=== PATIENT | female | born 1995 | race Caucasian/White ===

== ENCOUNTER 2019-11-12 00:33 | Inpatient (IN) | payer BC ==
[2019-11-12] MEDS ORDERED: OXYTOCIN/LR 20 UNIT/1,000 ML BAG IV SCH ×2 (04:16→17:00)
--- OUTSIDE RECORDS SUMMARY | 2019-11-12 04:24 | XMS REPORT | Continuity of Care Document ---
:1995 Author Organization [facility] t Address [address] [place] [address] [address]. [address] [place] [address] Care Team Providers Name Role Phone DR DICK Attending Clinician Unavailable DR DICK Admitting Clinician Unavailable Problems This patient has no known problems. Allergies, Adverse Reactions, Alerts This patient has no known allergies or adverse reactions. Medications This patient has no known medications. Procedures This patient has no known procedures. Encounters Start End Encounter Admission Attending Care Care Encounter Source Date/Time Date/Time Type Type Clinicians Facility Department ID 2018-04-05 2018-04-05 Outpatient [facility] 1 [id number] [facility] 12:23:00 15:16:00 [facility] Results Test Description Test Time Test Comments Results Result Comments Source URINE MONOCLONALRO 2018-04-05 12:30:00 Test Item Value Reference Range Interpretation Comme nts PREG UR (test code = PGU) NEGATIVE NEGATIVE
[2019-11-12] MEDS ORDERED: METHYLERGONOVINE 0.2MG/ML AMP IM PRN (05:11)
[2019-11-12] MEDS ORDERED: PROMETHAZINE INJ 25 MG/ML AMP IM PRN (05:11)
[2019-11-12] MEDS ORDERED: Ringers Lactate 1,000 ML IV PRN (05:11)
[2019-11-12] MEDS ORDERED: CARBOPROST TROME 250 MCG/ML IM PRN (05:11)
[2019-11-12] MEDS ORDERED: BUTORPHANOL 1 MG/ML INJ IV PRN (05:11)
[2019-11-12 05:41] LABS: Urine Appearance CLOUDY; Urine Bilirubin NEGATIVE (NEG); Urine Blood 1+ (NEG); Urine Color YELLOW; Urine Glucose NEGATIVE (NEG); Urine Protein NEGATIVE (NEG); Urine Urobilinogen 0.2 mg/dL (0.2-1.0); Urine pH 6.5 (5.0-7.0)
[2019-11-12 05:44] LABS: Urine Microscopic Reflex ORDER UMIC
[2019-11-12 05:50] LABS: Absolute Lymphocytes (CBC) 1.3 K/uL (0.7-4.9); Basophils % 0.2 % (0-1.3); Hematocrit 29.7 % (36.0-45.0); Lymphocytes % 13.3 % (15.3-44.8); MPV 8.6 fL (7.6-11.3); RBC Red Blood Cell Count 3.25 M/uL (3.86-4.86)
[2019-11-12 05:59] VITALS: BMI 23.8
[2019-11-12 05:59] LABS: Urine Bacteria 20-50 /HPF (<20); Urine RBC <5 /HPF (NONE SEEN)
[2019-11-12 06:00] LABS: Urine Culture Reflex Order REFLEXED
[2019-11-12] MEDS ORDERED: Ringers Lactate 1,000 ML IV SCH (06:00)
--- NOTE | 2019-11-12 07:57 | PREOPHP ---
Date of Admission: 11/12/2019 Sury Mcmahon 24-year-old primigravida, 39 weeks 3 days, Rh positive, immune to Rubella, negative be ta strep screen. FHTs normal, reactive. Vital signs stable. The patient is 1.5, almost 2 cm, 50% e ffaced, vertex, -1 station, rupture of membranes, clear fluid. Full labor talk given. Anticipate de livery sometime later today. HARRIS/DANG Voice ID: [id number]
[2019-11-12] MEDS ORDERED: FENTANYL CITR 100 MCG/2 ML IV ONE (08:23)
[2019-11-12] MEDS ORDERED: ROPIVACAINE HCL 100 ML IV PRN (08:23)
[2019-11-12] MEDS ORDERED: ROPIVACAINE HCL 0.2% 20ML AMP IV ONE (08:23)
[2019-11-12] MEDS ORDERED: LIDOCAINE 1% MPF 30 ML VIAL ONE (12:44)
--- NOTE | 2019-11-12 15:36 | PN ---
The patient is dylan every 1.5 to 2 minutes, very firm. Baby looks good. She has had 2 doses of Stadol but even with that baby has reasonable hugz-nc-cozx variability. She is now 4.5, almost 4 cm. Cervix is coming more anterior. She is about 60% to 65% effaced at this point in about a -1 sta tion. Requested an epidural. I think that is reasonable. We will hydrate her and notify Anesthesia and sometime during the next hour she will get her epidural. She is having back labor and has been doing pelvic rocks. Position of the baby is difficult to say at this point. We will check again lat er. HARRIS/DANG Voice ID: [id number] Report ID: [id number]
--- NOTE | 2019-11-12 16:06 | PN ---
The patient now has her epidural. She is quite happy and very comfortable. Can still move her legs very well. Baby looks good on the monitor. She is about 5 cm, 65% effaced. We need to finish effac ement and then I think, she will start dilating. She will continue pelvic rocks as she was having ba ck labor prior to the epidural. Once she gets to be about 6-7, I think she will make more rapid prog ress if she rotates the baby into an anterior position. HARRIS/DANG Voice ID: [id number] Report ID: [id number]
[2019-11-12] MEDS ORDERED: DOCUSATE NA/SENNA CONC 1 TAB PO PRN (16:52)
[2019-11-12] MEDS ORDERED: IBUPROFEN 200 MG TAB PO PRN (16:52)
[2019-11-12] MEDS ORDERED: ACETAMINOPHEN 500 MG TAB PO PRN (16:52)
[2019-11-12] MEDS ORDERED: Oxycodone HCl/Acetaminophen 1 TAB TAB PO PRN ×2 (16:52)
[2019-11-12] MEDS ORDERED: BISACODYL 10 MG RECTAL SUPP RC PRN (16:52)
[2019-11-12] MEDS ORDERED: DIPHENHYDRAMINE 25 MG TAB/CAP PO PRN (16:52)
[2019-11-12] MEDS ORDERED: miSOPROStoL 100 MCG TAB ONE (19:51)
[2019-11-12] MEDS: miSOPROStoL 100 MCG TAB PO SCH ×2 (20:10)
--- NOTE | 2019-11-13 01:10 | OP ---
Surgeon: Wilman Gordon MD A 24-year-old primigravida, at 39 weeks 3 days, approximately 2.5 to 3 cm on admission. Rupture of m embranes, clear fluid. Stadol 1 mg IV, 25 mg Phenergan IM. Second dose of Stadol only 1 mg. At maxine roximately 4 cm, the patient requested and received epidural anesthesia, which gave excellent effect during remainder of labor and delivery. Second stage between 30 and 45 minutes. Spontaneous vaginal delivery of an estimated 7-pound plus female, Apgars 9 and 9. Second-degree laceration repaired wit h 2-0 chromic and first degree extension with 3-0 chromic. Estimated blood loss 300 to 350 mL with S chultze delivery of the placenta, which was inspected and noted to be intact and normal. The patient tolerated all procedures well. She is Rh positive, immune to Rubella, and negative beta strep scree n. Final Diagnoses: Term intrauterine , 39 weeks 3 days, vaginal delivery, epidural anesthesia . HARRIS/DANG Voice ID: [id number] Report ID: [id number]
[2019-11-13] MEDS: miSOPROStoL 100 MCG TAB PO SCH ×2 (05:00→09:30)
[2019-11-13] MEDS ORDERED: Ringers Lactate 1,000 ML IV ONE (07:11)
[2019-11-13 16:58] VITALS: BP 121/64; TEMP 97.1
[2019-11-14 02:10] LABS: RPR (Rapid Plasma Reagin) NON-REACT (NON-REACT)
== END 2019-11-13 19:08 | disposition home or self-care (01) | DRG 807 ==
LOC: EDSTATUS 00:35 → 2ND-WC 04:22
PROVIDERS: ADMIT Specialist; ATTEND Specialist
PROC: 10E0XZZ Delivery of Products of Conception, External Approach (ICD-10-PCS; principal; 2019-11-12)
PROC: 0KQM0ZZ Repair Perineum Muscle, Open Approach (ICD-10-PCS; 2019-11-12)
PROC: 10907ZC Drainage of Amniotic Fluid, Therapeutic from Products of Conception, Via Natural or Artificial Opening (ICD-10-PCS; 2019-11-12)
DX: O70.1 Second degree perineal laceration during delivery (principal); Z37.0 Single live birth; Z3A.39 39 weeks gestation of pregnancy
CPT/HCPCS: 36415; 81003; 81015; 85025; 86592; 86901; 87086; 87088; 87340; J0595; J2210; J2550; J2590; J2795; J3010; J7120; U0002

== ENCOUNTER 2020-01-16 04:48 | Emergency (ER) | payer BC ==
--- OUTSIDE RECORDS SUMMARY | 2020-01-16 04:50 | XMS REPORT | Continuity of Care Document ---
:1995 Author Organization [facility] t Address [address] [place] [address] [address]. [address] [place] [address] Care Team Providers Name Role Phone DR [...] Department ID 2018-04-05 2018-04-05 Outpatient [facility] 1 [id number] [facility] 12:23:00 15:16:00 [facility] Results Test Description Test Time Test Comments Results Result Comments Source URINE MONOCLONALRO 2018-04-05 12:30:00 Test Item Value Reference Range Interpretation Comme nts PREG UR (test code = PGU) NEGATIVE NEGATIVE
[2020-01-16] MEDS ORDERED: MORPHINE 2 MG/ML SYR ONE (05:42)
[2020-01-16] MEDS ORDERED: NA CHLORIDE 0.9% 1,000 ML ONE (05:42)
[2020-01-16] MEDS ORDERED: ONDANSETRON 4 MG/2 ML VIAL ONE (05:42)
[2020-01-16] MEDS ORDERED: KETOROLAC 30 MG/ML INJ ONE (05:42)
[2020-01-16 05:47] LABS: Absolute Lymphocytes (CBC) 0.5 K/uL (0.7-4.9); Basophils % 0.2 % (0-1.3); Lymphocytes % 4.7 % (15.3-44.8); RBC Red Blood Cell Count 4.36 M/uL (3.86-4.86)
[2020-01-16 05:56] LABS: Albumin 3.8 g/dL (3.4-5.0); Bilirubin Direct 0.3 mg/dL (0-0.2); Bilirubin Total 1.1 mg/dL (0.2-1.0); Potassium 4.1 mmol/L (3.5-5.1); Protein, Total 7.5 g/dL (6.4-8.2)
--- NOTE | 2020-01-16 06:24 | ER ---
Nurse's Notes [facility] Name: Sury Mcmahon Age: 24 yrs Sex: Female : 1995 Arrival Date: 01/16/2020 Time: 04:50 Bed 5 Private MD: Diagnosis: Hydronephrosis with renal and ureteral calculous obstruction-3 mm calculi right distal ureter Presentation: 01/15 05:01 Chief complaint: Patient states: pt reports having started her menstrual cycle about 4 sg days ago with normal bleeding, reports yesterday having really bad pain and cramping in the flank area and suprapubic area, pt states having nausea/vomiting/chills, states pain to be intermittent. Coronavirus screen: Client denies travel out of the [place] in the last 14 days. At this time, the client does not indicate any symptoms associated with coronavirus-19. Ebola Screen: Patient negative for fever greater than or equal to 101.5 degrees Fahrenheit, and additional compatible Ebola Virus Disease symptoms Patient denies exposure to infectious person. Patient denies travel to an Ebola-affected area in the 21 days before illness onset. No symptoms or risks identified at this time. Initial Sepsis Screen: Does the patient meet any 2 criteria? No. Patient's initial sepsis screen is negative. Does the patient have a suspected source of infection? Yes: Acute abdominal pain. Risk Assessment: Do you want to hurt yourself or someone else? Patient reports no desire to harm self or others. Onset of symptoms was January 16, 2020. Care prior to arrival: None. Transition of care: patient was not received from another setting of care. 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 - Social history:: Smoking status: Patient denies any tobacco usage or history of. - Family history:: not pertinent. Screenin:30 Fall Risk IV access (20 points). mg2 06:12 Abuse screen: Denies threats or abuse. Denies injuries from another. Nutritional mg2 screening: No deficits noted. Tuberculosis screening: No symptoms or risk factors identified. Assessment: 06:11 General: Appears in no apparent distress. comfortable, Behavior is calm, cooperative. mg2 Pain: Complains of pain in abdomen. Neuro: Level of Consciousness is awake, alert, obeys commands, Oriented to person, place, time, situation. Cardiovascular: Capillary refill < 3 seconds Patient's skin is warm and dry. Respiratory: Airway is patent Respiratory effort is even, unlabored, Respiratory pattern is regular, symmetrical. GI: Reports lower abdominal pain, nausea, vomiting. : Urine is cloudy. EENT: No signs and/or symptoms were reported regarding the EENT system. Derm: Skin is intact, is healthy with good turgor, Skin is pink, warm \T\ dry. normal. Musculoskeletal: Circulation, motion, and sensation intact. Capillary refill < 3 seconds. 06:53 Reassessment: Patient appears in no apparent distress at this time. Patient and/or jb4 family updated on plan of care and expected duration. Pain level reassessed. Patient is alert, oriented x 3, equal unlabored respirations, skin warm/dry/pink. Pt and family verbalized understanding of d/c and follow up instructions. Denies questions or concerns. Ambulated out of ED with steady gait. Vital Signs: 05:01 BP 135 / 72; Pulse 72; Resp 16; Pulse Ox 100% on R/A; Weight 56.7 kg; Height 5 ft. 3 sg in. (160.02 cm); Pain 7/10; 05:01 Body Mass Index 22.14 (56.70 kg, 160.02 cm) ED Course: 04:50 Patient arrived in ED. bp1 05:02 Thomas Rodriguez MD is Attending Physician. yovanny 05:03 Triage completed. sg 05:04 Arm band placed on. sg 05:20 Jason Guadarrama, KAMRAN is Primary Nurse. mg2 05:30 Inserted saline lock: 20 gauge in right antecubital area, using aseptic technique. mg2 Blood collected. 06:03 CT Stone Protocol In Process Unspecified. EDMS 06:12 Patient has correct armband on for positive identification. Door closed. Warm blanket mg2 given. 06:12 No provider procedures requiring assistance completed. mg2 06:22 Tio Stokes MD is Referral Physician. yovanny 06:53 IV discontinued, intact, bleeding controlled, No redness/swelling at site. Pressure jb4 dressing applied. Administered Medications: 05:36 Drug: NS 0.9% 1000 ml Route: IV; Rate: 1 bolus; Site: right antecubital; mg2 05:36 Drug: TORadol 30 mg Route: IVP; Site: right antecubital; mg2 05:36 Drug: Zofran (Ondansetron) 4 mg Route: IVP; Site: right antecubital; mg2 05:37 Not Given (Patient Refused): morphine 2 mg IVP once; (PAIN>8) RASS on ADMN: Combtv4, mg2 Very Agttd3, Agttd2, Rstlss1, AlertClm0, Drwsy-1, LtSdtn-2, ModSdtn-3, DpSdtn-4, UnArsble-5 x2 06:42 Drug: Rocephin 1 grams Route: IV; Rate: per protocol; Site: right antecubital; jb4 06:45 Follow up: Response: No adverse reaction; IV Status: Completed infusion jb4 06:42 Drug: Flomax 0.4 mg Route: PO; jb4 06:56 Follow up: Response: No adverse reaction [facility] Outcome: 06:23 Discharge ordered by . yovanny 06:56 Discharged to home ambulatory, with family. jb4 06:56 Condition: stable 06:56 Discharge instructions given to patient, Instructed on discharge instructions, follow up and referral plans. medication usage, Demonstrated understanding of instructions, follow-up care, medications, Prescriptions given X 4. 06:57 Patient left the ED. [facility] Signatures: Dispatcher [employer] EDMS Catracho Jha, Thomas Johnson RN, MD MD cha Bryson, James, RN RN jbJason Fitzgerald RN RN mg2 Jaylyn Edwards bp1
--- NOTE | 2020-01-16 06:24 | EDPHYS ---
[facility] Name: Sury Mcmahon Age: 24 yrs Sex: Female : 1995 Arrival Date: 01/16/2020 Time: 04:50 Bed 5 Private MD: ED Physician Thomas Rodriguez HPI: 01/15 05:07 This 24 yrs old Female presents to ER via Ambulatory with complaints of Back yovanny Pain, Abdominal Pain, Nausea. 05:07 The patient presents with pain that is acute, with no known mechanism of injury. The yovanny symptoms are located in the right mid back and right low back. Onset: The symptoms/episode began/occurred just prior to arrival, yesterday. The pain radiates to the right mid back and right low back. Associated signs and symptoms: The patient has no apparent associated signs or symptoms. The problem was sustained from unknown cause. Modifying factors: The patient symptoms are alleviated by nothing, the patient symptoms are aggravated by nothing. Severity of symptoms: At their worst the symptoms were moderate, in the emergency department the symptoms are unchanged. The patient has not experienced similar symptoms in the past. 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 - Social history:: Smoking status: Patient denies any tobacco usage or history of. - Family history:: not pertinent. ROS: 05:07 Constitutional: Negative for fever, chills, and weight loss, Eyes: Negative for injury, yovanny pain, redness, and discharge, ENT: Negative for injury, pain, and discharge, Neck: Negative for injury, pain, and swelling, Cardiovascular: Negative for chest pain, palpitations, and edema, Respiratory: Negative for shortness of breath, cough, wheezing, and pleuritic chest pain, Abdomen/GI: Negative for abdominal pain, nausea, vomiting, diarrhea, and constipation, : Negative for injury, bleeding, discharge, and swelling, MS/Extremity: Negative for injury and deformity, Skin: Negative for injury, rash, and discoloration, Neuro: Negative for headache, weakness, numbness, tingling, and seizure, Psych: Negative for depression, anxiety, suicide ideation, homicidal ideation, and hallucinations, Allergy/Immunology: Negative for hives, rash, and allergies, Endocrine: Negative for neck swelling, polydipsia, polyuria, polyphagia, and marked weight changes, Hematologic/Lymphatic: Negative for swollen nodes, abnormal bleeding, and unusual bruising. 05:07 Back: Positive for pain at rest, flank pain, on the right. Exam: 05:07 Constitutional: This is a well developed, well nourished patient who is awake, alert, yovanny and in no acute distress. Head/Face: Normocephalic, atraumatic. Eyes: Pupils equal round and reactive to light, extra-ocular motions intact. Lids and lashes normal. Conjunctiva and sclera are non-icteric and not injected. Cornea within normal limits. Periorbital areas with no swelling, redness, or edema. ENT: Nares patent. No nasal discharge, no septal abnormalities noted. Tympanic membranes are normal and external auditory canals are clear. Oropharynx with no redness, swelling, or masses, exudates, or evidence of obstruction, uvula midline. Mucous membranes moist. Neck: Trachea midline, no thyromegaly or masses palpated, and no cervical lymphadenopathy. Supple, full range of motion without nuchal rigidity, or vertebral point tenderness. No Meningismus. Chest/axilla: Normal chest wall appearance and motion. Nontender with no deformity. No lesions are appreciated. Cardiovascular: Regular rate and rhythm with a normal S1 and S2. No gallops, murmurs, or rubs. Normal PMI, no JVD. No pulse deficits. Respiratory: Lungs have equal breath sounds bilaterally, clear to auscultation and percussion. No rales, rhonchi or wheezes noted. No increased work of breathing, no retractions or nasal flaring. Abdomen/GI: Soft, non-tender, with normal bowel sounds. No distension or tympany. No guarding or rebound. No evidence of tenderness throughout. Female : Normal external genitalia. Skin: Warm, dry with normal turgor. Normal color with no rashes, no lesions, and no evidence of cellulitis. MS/ Extremity: Pulses equal, no cyanosis. Neurovascular intact. Full, normal range of motion. Neuro: Awake and alert, GCS 15, oriented to person, place, time, and situation. Cranial nerves II-XII grossly intact. Motor strength 5/5 in all extremities. Sensory grossly intact. Cerebellar exam normal. Normal gait. Psych: Awake, alert, with orientation to person, place and time. Behavior, mood, and affect are within normal limits. 05:07 Back: pain, that is mild, that is moderate, of the right mid back and right low back, ROM is normal, normal spinal alignment noted, CVA tenderness, is absent, muscle spasm, is not present. Vital Signs: 05:01 BP 135 / 72; Pulse 72; Resp 16; Pulse Ox 100% on R/A; Weight 56.7 kg; Height 5 ft. 3 sg in. (160.02 cm); Pain 7/10; 05:01 Body Mass Index 22.14 (56.70 kg, 160.02 cm) sg MDM: 05:02 Patient medically screened. [facility] 05:10 Differential diagnosis: Pyelonephritis Ureterolithiasis. Data reviewed: vital signs, [facility] nurses notes, lab test result(s), radiologic studies, CT scan. Data interpreted: financial institution president: not applicable for this patient encounter. rate is 72 beats/min, rhythm is regular, Pulse oximetry: on room air is 100 %. Counseling: I had a detailed discussion with the patient and/or guardian regarding: the historical points, exam findings, and any diagnostic results supporting the discharge/admit diagnosis, lab results, radiology results, the need for outpatient follow up, for definitive care, a urologist. 01/15 05:06 Order name: Basic Metabolic Panel; Complete Time: 06:[address] [facility] 01/15 05:06 Order name: CBC with Diff [facility] 01/15 05:06 Order name: Hepatic Function; Complete Time: 06:[address] [facility] 01/15 05:06 Order name: Lipase; Complete Time: 06:[address] [facility] 01/15 05:06 Order name: Urine Culture [facility] 01/15 05:48 Order name: Urine Dipstick--Ancillary (enter results) [facility] 01/15 05:07 Order name: CT Stone Protocol [facility] 01/15 05:48 Order name: Urine --Ancillary (enter results) [facility] 01/15 06:34 Order name: Manual Differential EDMS 01/15 05:06 Order name: IV Saline Lock; Complete Time: 05:[address] [facility] 01/15 05:06 Order name: Labs collected and sent; Complete Time: 05:[address] [facility] 01/15 05:06 Order name: Urine Dipstick-Ancillary (obtain specimen); Complete Time: 05:[address] [facility] 01/15 05:06 Order name: Urine Test (obtain specimen); Complete Time: 05:[address] [facility] Administered Medications: 05:36 Drug: NS 0.9% 1000 ml Route: IV; Rate: 1 bolus; Site: right antecubital; mg2 05:36 Drug: TORadol 30 mg Route: IVP; Site: right antecubital; mg2 05:36 Drug: Zofran (Ondansetron) 4 mg Route: IVP; Site: right antecubital; mg2 05:37 Not Given (Patient Refused): morphine 2 mg IVP once; (PAIN>8) RASS on ADMN: Combtv4, mg2 Very Agttd3, Agttd2, Rstlss1, AlertClm0, Drwsy-1, LtSdtn-2, ModSdtn-3, DpSdtn-4, UnArsble-5 x2 06:42 Drug: Rocephin 1 grams Route: IV; Rate: per protocol; Site: right antecubital; jb4 06:45 Follow up: Response: No adverse reaction; IV Status: Completed infusion jb4 06:42 Drug: Flomax 0.4 mg Route: PO; jb4 06:56 Follow up: Response: No adverse reaction 4 Disposition: 01/16/20 06:23 Discharged to Home. Impression: Hydronephrosis with renal and ureteral calculous obstruction - 3 mm calculi right distal ureter. - Condition is Stable. - Discharge Instructions: Kidney Stones, Kidney Stones, [id number], Hydronephrosis. - Prescriptions for Keflex 500 mg Oral Capsule - take 1 capsule by ORAL route every 6 hours for 7 days; 28 capsule. Tylenol- Codeine #3 300-30 mg Oral Tablet - take 2 tablet by ORAL route every 6 hours As needed; 30 tablet. Zofran 4 mg Oral Tablet - take 1 tablet by ORAL route every 12 hours As needed; 20 tablet. Flomax 0.4 mg Oral Capsule, Sust. Release 24 hr - take 1 capsule by ORAL route once daily 1/2 hour following the same meal each day; 10 capsule. - Medication Reconciliation Form, Thank You Letter, Antibiotic Education, Prescription Opioid Use form. - Follow up: Private Physician; When: 2 - 3 days; Reason: Recheck today's complaints, Continuance of care, Re-evaluation by your physician. Follow up: Tio Stokes; When: 2 - 3 days; Reason: Recheck today's complaints, Continuance of care, Re-evaluation by your physician. - Problem is new. - Symptoms have improved. Signatures: Dispatcher [employer] EDMS Catracho Jha RN RN sg Anderson, Corey, MD MD cha Bryson, James, RN RN jb4 Jason Guadarrama RN RN mg2 Corrections: (The following items were deleted from the chart) 06:57 06:23 01/16/2020 06:23 Discharged to Home. Impression: Hydronephrosis with renal and jb4 ureteral calculous obstruction - 3 mm calculi right distal ureter. Condition is Stable. Discharge Instructions: Kidney Stones, Kidney Stones, [id number], Hydronephrosis. Prescriptions for Keflex 500 mg Oral Capsule - take 1 capsule by ORAL route every 6 hours for 7 days; 28 capsule, Tylenol-Codeine #3 300-30 mg Oral Tablet - take 2 tablet by ORAL route every 6 hours As needed; 30 tablet, Zofran 4 mg Oral Tablet - take 1 tablet by ORAL route every 12 hours As needed; 20 tablet, Flomax 0.4 mg Oral Capsule, Sust. Release 24 hr - take 1 capsule by ORAL route once daily 1/2 hour following the same meal each day; 10 capsule. and Forms are Medication Reconciliation Form, Thank You Letter, Antibiotic Education, Prescription Opioid Use. Follow up: Private Physician; When: 2 - 3 days; Reason: Recheck today's complaints, Continuance of care, Re-evaluation by your physician. Follow up: Tio Stokes; When: 2 - 3 days; Reason: Recheck today's complaints, Continuance of care, Re-evaluation by your physician. Problem is new. Symptoms have improved. yovanny
[2020-01-16 06:33] LABS: Blood Morphology Comment NOT SEEN (NOT SEEN); Platelet Estimate ADEQ
[2020-01-16] MEDS ORDERED: CEFTRIAXONE/SWI 1gm 1 GM/10 ML SYR ONE (06:44)
[2020-01-16] MEDS ORDERED: TAMSULOSIN 0.4 MG SR CAP ONE (06:47)
[2020-01-16 07:13] VITALS: BP 135/72; O2SAT 100
[2020-01-16 08:02] LABS: Urine Blood 3+ (NEG); Urine Glucose NEGATIVE (NEG); Urine Protein 1+ (NEG); Urine Specific Gravity >1.030 (1.005-1.030); Urine pH 5.5 (5.0-7.0)
--- NOTE | 2020-01-16 10:27 | RAD REPORT ---
EXAM DESCRIPTION: CT - Stone Protocol - 01/16/2020 6:33 am CLINICAL HISTORY: The patient is 24 years old and is Female; FLANK PAIN LMP four days ago TECHNIQUE: Axial computed tomography images of the abdomen and pelvis without intravenous contrast. Sagittal and coronal reformatted images were created and reviewed. This CT exam was performed usi ng one or more of the following dose reduction techniques: automated exposure control, adjustment o f the mA and/or kV according to patient size, and/or use of iterative reconstruction technique. COMPARISON: No relevant prior studies available. FINDINGS: Lung bases: Unremarkable. No mass. No consolidation. ABDOMEN: Liver: Hepatomegaly. Gallbladder and bile ducts: Unremarkable. No calcified stones. No ductal dilation. Pancreas: Unremarkable. No ductal dilation. Spleen: Unremarkable. No splenomegaly. Adrenals: Unremarkable. No mass. Kidneys and ureters: Right hydronephrosis and perinephric stranding with a 3.0 mm calculus in th e distal right ureter. Punctate bilateral nephrolithiasis. Stomach and bowel: No bowel dilatation or obstruction. No bowel wall thickening. PELVIS: Appendix: No findings to suggest acute appendicitis. Bladder: Bladder is empty. No stones. Reproductive: Unremarkable as visualized. ABDOMEN and PELVIS: Intraperitoneal space: Small amount of free fluid in the cul-de-sac, likely physiologic. No free air. Bones/joints: Mild scoliosis. L5-S1 degenerative disc disease, with mild to moderate bilateral neural foraminal narrowing, greater on the right. No acute fracture visualized. No dislocation. Soft tissues: Unremarkable. Vasculature: Unremarkable. No abdominal aortic aneurysm. Lymph nodes: No pathologically enlarged lymph nodes. IMPRESSION: 1. Right hydronephrosis and perinephric stranding with a 3.0 mm calculus in the distal right ureter. 2. Punctate bilateral nephrolithiasis. 3. Hepatomegaly. 4. Additional non-emergent findings as above. Electronically signed by: Mady Lopez MD 01/16/2020 6:16 AM CDT Due to temporary technical issues with the PACS/Fluency reporting system, reports are being signed by the in house radiologist without review as a courtesy to ensure prompt reporting. The interpreting r adiologist is fully responsible for the content of the report.
== END 2020-01-16 06:57 | disposition home or self-care (01) ==
LOC: ER 04:48
DX: N13.2 Hydronephrosis with renal and ureteral calculous obstruction (principal)
CPT/HCPCS: 87088; 85025; 87086; 80048; 36415; 81025; 80076; 81003; 83690; 76377; 74176; 96375; 96374; 99284; J0696; J7030; J2405; J2270

== ENCOUNTER 2021-01-22 12:27 | Emergency (ER) | payer OTHER ==
[2021-01-22 13:08] LABS: Urine Blood 1+ (Negative); Urine Glucose Negative (Negative); Urine Protein Negative (Negative); Urine Specific Gravity >=1.030 (1.005-1.030); Urine pH 5.5 (5.0-7.0)
[2021-01-22 13:18] LABS: Absolute Lymphocytes (CBC) 1.3 K/uL (0.7-4.9); Basophils % 0.6 % (0-1.3); Hematocrit 37.5 % (36.0-45.0); MPV 8.2 fL (7.6-11.3); RBC Red Blood Cell Count 4.39 M/uL (3.86-4.86)
[2021-01-22] MEDS ORDERED: MORPHINE 4 MG/ML SYR ONE (13:35)
[2021-01-22] MEDS ORDERED: ONDANSETRON 4 MG/2 ML VIAL ONE (13:35)
[2021-01-22 13:44] LABS: Urine Bacteria <20 /HPF (<20)
[2021-01-22 13:45] LABS: Urine Mucus HEAVY /HPF (NONE SEEN)
[2021-01-22 13:56] LABS: ALT/SGPT 17 U/L (12-78); AST/SGOT 8 U/L (15-37); Albumin 4.2 g/dL (3.4-5.0); Alkaline Phosphatase 35 U/L (45-117); BUN Blood Urea Nitrogen 12 mg/dL (7-18); Bicarbonate 28 mmol/L (21-32); Bilirubin Direct 0.3 mg/dL (0-0.2); Bilirubin Total 1.7 mg/dL (0.2-1.0); Glucose Level 91 mg/dL (74-106); Lipase 93 U/L (73-393); Potassium 3.6 mmol/L (3.5-5.1); Protein, Total 7.7 g/dL (6.4-8.2); Sodium Level 142 mmol/L (136-145)
--- NOTE | 2021-01-22 14:11 | RAD REPORT ---
EXAM DESCRIPTION: CTAbdomen Pelvis W Contrast - 01/22/2021 2:00 pm CLINICAL HISTORY: Abdominal pain. RLQ abd pain;Abd pain COMPARISON: Stone Protocol dated 01/16/2020 TECHNIQUE: Biphasic CT imaging of the abdomen and pelvis was performed with 100 ml non-ionic IV cont rast. All CT scans are performed using dose optimization technique as appropriate and may include automated exposure control or mA/KV adjustment according to patient size. FINDINGS: The lung bases are clear. The liver, spleen, pancreas, adrenal glands and kidneys are within normal limits. No bowel obstruction, free air, free fluid or abscess. The appendix is normal. No evidence of signi ficant lymphadenopathy. No suspicious bony findings. IMPRESSION: No acute intra-abdominal or pelvic finding.
--- NOTE | 2021-01-22 14:25 | EDPHYS ---
Physician Documentation [facility] Name: Sury Mcmahon Age: 25 yrs Sex: Female : 1995 Arrival Date: 01/22/2021 Time: 12:27 Bed 10 Private MD: Wilman Gordon B ED Physician Nishant Bermudez HPI: 01/22 13:09 This 25 yrs old Female presents to ER via Ambulatory with complaints of rn Abdominal Pain - RLQ, Abdominal Cramping. 13:09 The patient presents with abdominal pain right lower quadrant. Onset: The rn symptoms/episode began/occurred 2.5 month(s) ago. The symptoms do not radiate. Associated signs and symptoms: Pertinent positives: diarrhea, Pertinent negatives: nausea and vomiting, blood in stools, dysuria, fever, vomiting blood. The symptoms are described as achy, crampy. Modifying factors: The symptoms are alleviated by nothing, the symptoms are aggravated by movement, touching the area. Severity of pain: At its worst the pain was moderate in the emergency department the pain has improved. The patient has not experienced similar symptoms in the past. The patient has not recently seen a physician. Reports 2.5 months of right lower quadrant abdominal pain, constant, just evaluated by gynecology this week and told no gynecological cause of her pain. Denies fever. Reports diarrhea. Insists pain is constant without a pattern.. 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 - Social history:: Smoking status: Patient denies any tobacco usage or history of. - Family history:: not pertinent. - Hospitalizations: : No recent hospitalization is reported. ROS: 13:09 Constitutional: Negative for fever, chills, and weight loss, Eyes: Negative for injury, rn pain, redness, and discharge, Neck: Negative for injury, pain, and swelling, Cardiovascular: Negative for chest pain, palpitations, and edema, Respiratory: Negative for shortness of breath, cough, wheezing, and pleuritic chest pain, Abdomen/GI: Positive for abdominal pain in right lower quadrant Back: Negative for injury and pain, : Negative for injury, bleeding, discharge, and swelling, MS/Extremity: Negative for injury and deformity, Skin: Negative for injury, rash, and discoloration, Neuro: Negative for headache, weakness, numbness, tingling, and seizure. 13:09 All other systems are negative. Exam: 13:09 Constitutional: This is a well developed, well nourished patient who is awake, alert, rn and in no acute distress. Ambulatory to room without difficulty or assistance Head/Face: Normocephalic, atraumatic. Eyes: Periorbital areas with no swelling, redness, or edema. Cardiovascular: Regular rate and rhythm. No pulse deficits. Respiratory: No increased work of breathing, no retractions or nasal flaring. Abdomen/GI: Soft, mild right lower quadrant tenderness and periumbilical tenderness. No masses. No peritoneal signs Back: No spinal tenderness. No costovertebral tenderness. Full range of motion. Skin: Warm, dry with normal turgor. Normal color with no rashes, no lesions, and no evidence of cellulitis. MS/ Extremity: Pulses equal, no cyanosis. Neurovascular intact. Full, normal range of motion. Equal circumference. Neuro: Awake and alert, GCS 15 Vital Signs: 12:41 BP 127 / 88; Pulse 83; Resp 16; Temp 97.2; Pulse Ox 100% ; Weight 47.63 kg; Height 5 ll1 ft. 5 in. (165.10 cm); Pain 7/10; 13:15 BP 123 / 86; Pulse 72; Resp 16; Pulse Ox 100% ; vg1 14:25 BP 107 / 63; Pulse 65; Resp 16; Pulse Ox 100% ; vg1 12:41 Body Mass Index 17.47 (47.63 kg, 165.10 cm) ll1 MDM: 12:32 Patient medically screened. rn 14:22 Differential diagnosis: appendicitis, diverticulitis, Endometriosis, gastritis, rn gastroesophageal reflux disease, non-specific abd pain, pancreatitis, Peptic Ulcer Disease, Ureterolithiasis, urinary tract infection. 14:23 Data reviewed: vital signs, nurses notes, lab test result(s), radiologic studies, CT rn scan, and as a result, I will discharge patient. Counseling: I had a detailed discussion with the patient and/or guardian regarding: the historical points, exam findings, and any diagnostic results supporting the discharge/admit diagnosis, lab results, radiology results, the need for outpatient follow up, to return to the emergency department if symptoms worsen or persist or if there are any questions or concerns that arise at home. Special discussion: Based on the patient's Hx, exam, and Dx evaluation, there is no indication for emergent surgery or inpatient Tx. It is understood by the patient/guardian that if the Sx's persist or worsen they need to return immediately for re-evaluation. I discussed with the patient/guardian in detail that at this point there is no indication for admission to the hospital. It is understood, however, that if the symptoms persist or worsen the patient needs to return immediately for re-evaluation. Based on the history and exam findings, there is no indication for further emergent testing or inpatient evaluation. I discussed with the patient/guardian the need to see the chief operator hydroformer for further evaluation of the symptoms. I discussed with the patient/guardian the need to see the OB Gyne specialist for further evaluation of the symptoms. ED course: UPT negative. 01/22 12:41 Order name: Basic Metabolic Panel rn 01/22 12:41 Order name: CBC with Diff; Complete Time: 14:22 rn 01/22 12:41 Order name: Hepatic Function; Complete Time: 14:22 rn 01/22 12:41 Order name: Lipase; Complete Time: 14:22 rn 01/22 12:41 Order name: Urine Microscopic Only; Complete Time: 14:22 rn 01/22 12:42 Order name: Basic Metabolic Panel; Complete Time: 14:22 EDNE 01/22 12:41 Order name: IV Saline Lock; Complete Time: 13:10 rn 01/22 12:41 Order name: Labs collected and sent; Complete Time: 13:10 rn 01/22 12:41 Order name: CT Abd/Pelvis - IV Contrast Only; Complete Time: 14:22 rn 01/22 12:41 Order name: Urine Dipstick-Ancillary (obtain specimen); Complete Time: 13:10 rn 01/22 13:08 Order name: Urine Dipstick-Ancillary; Complete Time: 14:22 EDNE 01/22 13:10 Order name: Urine --Ancillary (enter results) 01/22 12:41 Order name: Urine Test (obtain specimen); Complete Time: 13:10 rn Administered Medications: 13:13 Drug: Zofran (Ondansetron) 4 mg Route: IVP; Site: right antecubital; vg1 14:26 Follow up: Response: No adverse reaction vg1 13:15 Drug: morphine 4 mg Route: IVP; Site: right antecubital; vg1 14:26 Follow up: Response: No adverse reaction; Marked relief of symptoms vg1 Disposition Summary: 01/22/21 14:24 Discharge Ordered Location: Home rn Problem: an ongoing problem rn Symptoms: have improved rn Condition: Stable rn Diagnosis - Abdominal pain, unspecified rn Followup: rn - With: Private Physician - When: As needed - Reason: Recheck today's complaints, Re-evaluation by your physician Discharge Instructions: - Discharge Summary Sheet rn - Abdominal Pain, Adult rn - Pain Without a Known Cause rn Forms: - Medication Reconciliation Form rn - Thank You Letter rn - Antibiotic patternmaker metal - Prescription Opioid Use rn Signatures: Dispatcher [employer] Nishant Valenzuela MD MD rn Garcia, Victoria RN RN 1 Maame Dumont RN RN 1
--- NOTE | 2021-01-22 14:25 | ER ---
Nurse's Notes [facility] Name: Sury Mcmahon Age: 25 yrs Sex: Female : 1995 Arrival Date: 01/22/2021 Time: 12:27 Bed 10 Private MD: Wilman Gordon B Diagnosis: Abdominal pain, unspecified Presentation: 01/22 12:34 Coronavirus screen: Client denies travel out of the [place] in the last 14 days. Ebola ll1 Screen: Patient denies travel to an Ebola-affected area in the 21 days before illness onset. Risk Assessment: Do you want to hurt yourself or someone else? Patient reports no desire to harm self or others. 12:34 Acuity: MIKAELA 3 ll1 12:34 Method Of Arrival: Ambulatory [facility] 12:41 Chief complaint: Patient states: RLQ abd pain for 2 months. Had diarrhea yesterday. ll1 Already saw her pantograph operator for this. No fevers. Coronavirus screen: At this time, the client does not indicate any symptoms associated with coronavirus-19. Initial Sepsis Screen: Does the patient meet any 2 criteria? No. Patient's initial sepsis screen is negative. Does the patient have a suspected source of infection? Yes: Acute abdominal pain. Onset of symptoms was November 22, 2020. 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 - Social history:: Smoking status: Patient denies any tobacco usage or history of. - Family history:: not pertinent. - Hospitalizations: : No recent hospitalization is reported. Screenin:50 Abuse screen: Denies threats or abuse. Nutritional screening: No deficits noted. vg1 Tuberculosis screening: No symptoms or risk factors identified. Fall Risk No fall in past 12 months (0 pts). No secondary diagnosis (0 pts). IV access (20 points). Ambulatory Aid- None/Bed Rest/Nurse Assist (0 pts). Gait- Normal/Bed Rest/Wheelchair (0 pts) Mental Status- Oriented to own ability (0 pts). Total Jhaveri Fall Scale indicates No Risk (0-24 pts). Assessment: 12:48 General: Appears in no apparent distress. uncomfortable, Behavior is calm, cooperative. vg1 Pain: Complains of pain in right lower quadrant Pain currently is 6 out of 10 on a pain scale. Pain began about two months ago Noted to be guarding. Neuro: Level of Consciousness is awake, alert, obeys commands, Oriented to person, place, time, situation. Cardiovascular: Patient's skin is warm and dry. Respiratory: Airway is patent Respiratory effort is even, unlabored. GI: Bowel sounds present X 4 quads. Abdomen is tender to palpation in right lower quadrant. : No signs and/or symptoms were reported regarding the genitourinary system. EENT: No signs and/or symptoms were reported regarding the EENT system. Derm: Skin is intact, is healthy with good turgor. Musculoskeletal: Circulation, motion, and sensation intact. 14:25 Reassessment: Patient appears in no apparent distress at this time. Patient and/or vg1 family updated on plan of care and expected duration. Pain level reassessed. Patient is alert, oriented x 3, equal unlabored respirations, skin warm/dry/pink. Pain level 4/10 Patient states feeling better. Vital Signs: 12:41 BP 127 / 88; Pulse 83; Resp 16; Temp 97.2; Pulse Ox 100% ; Weight 47.63 kg; Height 5 ll1 ft. 5 in. (165.10 cm); Pain 7/10; 13:15 BP 123 / 86; Pulse 72; Resp 16; Pulse Ox 100% ; vg1 14:25 BP 107 / 63; Pulse 65; Resp 16; Pulse Ox 100% ; vg1 12:41 Body Mass Index 17.47 (47.63 kg, 165.10 cm) ll1 ED Course: 12:27 Patient arrived in ED. am2 12:28 Wilman Gordon MD is Private Physician. am2 12:32 Nishant Bermudez MD is Attending Physician. rn 12:34 Arm band placed on Patient placed in an exam room, on a stretcher. ll1 12:35 Triage completed. ll1 12:36 Araceli Escobedo RN is Primary Nurse. vg1 12:50 Patient has correct armband on for positive identification. Placed in gown. Bed in low vg1 position. Call light in reach. Side rails up X 1. 13:10 Initial lab(s) drawn, by me, sent to lab. Urine collected: clean catch specimen. vg1 Inserted saline lock: 20 gauge in right antecubital area, using aseptic technique. Blood collected. 14:00 CT Abd/Pelvis - IV Contrast Only In Process Unspecified. EDMS 14:50 No provider procedures requiring assistance completed. IV discontinued, intact, ap3 bleeding controlled, No redness/swelling at site. Pressure dressing applied. Administered Medications: 13:13 Drug: Zofran (Ondansetron) 4 mg Route: IVP; Site: right antecubital; vg1 14:26 Follow up: Response: No adverse reaction vg1 13:15 Drug: morphine 4 mg Route: IVP; Site: right antecubital; vg1 14:26 Follow up: Response: No adverse reaction; Marked relief of symptoms vg1 Outcome: 14:24 Discharge ordered by . rn 14:50 Discharged to home ambulatory, with family. ap3 14:50 Condition: good 14:50 Discharge instructions given to patient, Instructed on discharge instructions, follow up and referral plans. Demonstrated understanding of instructions, follow-up care. 14:51 Patient left the ED. ap3 Signatures: Dispatcher [employer] EDMS Nishant Bermudez MD MD rn Moreno, Amanda am2 Prokisch, Amanda, RN RN ap3 Araceli Escobedo RN RN vg1 Maame Dumont RN RN ll1
[2021-01-22 15:08] VITALS: O2SAT 100
[2021-01-22 15:10] VITALS: TEMP 97.2
[2021-01-22 15:11] VITALS: BP 107/63
== END 2021-01-22 14:51 | disposition home or self-care (01) ==
LOC: ER 12:27
DX: R10.31 Right lower quadrant pain (principal)
CPT/HCPCS: 85025; 80048; 36415; 81025; 80076; 83690; 74177; 96375; 96374; 99284; Q9967; J2405; 81003; 81015

== ENCOUNTER 2022-03-02 01:44 | Inpatient (IN) | payer OTHER ==
[2022-03-02] MEDS ORDERED: PENICILLIN G POT 5 MU/VIAL IV ONE ×2 (02:18→06:04)
[2022-03-02] MEDS ORDERED: Ringers Lactate 1,000 ML IV ONE (02:19)
[2022-03-02] MEDS ORDERED: NA CHLORIDE 0.9% 100 ML ONE (02:19)
[2022-03-02] MEDS ORDERED: BUTORPHANOL 1 MG/ML INJ ONE (03:47)
[2022-03-02] MEDS ORDERED: PROMETHAZINE INJ 25 MG/ML AMP ONE (03:48)
[2022-03-02] MEDS ORDERED: PENICILLIN 5 MU in NA CHLORIDE 0.9% 100 ML IV ONE (03:50)
[2022-03-02] MEDS ORDERED: OXYTOCIN/LR 20 UNIT/1,000 ML BAG IV ONE (04:52)
[2022-03-02] MEDS ORDERED: ROPIVACAINE HCL 20 ML ONE (05:48)
[2022-03-02] MEDS ORDERED: FENTANYL CITR 100 MCG/2 ML ONE (05:48)
[2022-03-02] MEDS ORDERED: ROPIVACAINE HCL 100 ML EP ONE (05:48)
[2022-03-02] MEDS ORDERED: NA CHLORIDE 0.9% 50 ML IV ONE (06:04)
--- OUTSIDE RECORDS SUMMARY | 2022-03-02 06:07 | XMS REPORT | Continuity of Care Document ---
:1995 Author Organization [facility] t Address [address] [place] [address] [address] [place] [address] Care Team Providers Name Role Phone DR LENCHO JENNINGS Attending Clinician Unavailable DR LENCHO JENNINGS Admitting Clinician Unavailable Problems This patient has no known problems. Allergies, Adverse Reactions, Alerts This patient has no known allergies or adverse reactions. Social History Social Habit Start Date Stop Date Quantity Comments Source Sex Assigned At [address] [facility] Medications This patient has no known medications. Procedures This patient has no known procedures. Encounters Start End Encounter Admission Attending Care Care Encounter Source Date/Time Date/Time Type Type Clinicians Facility Department ID 2018-04-05 2018-04-05 Outpatient LENCHO COLLINS [place] [id number] [facility] 12:23:00 15:16:00 [facility] Results Test Description Test Time Test Comments Results Result Comments Source SARS-COV2/RT-PCR ([facility]) 2019-11-12 11:52:00 Test Item Value Reference Range Interpretation Comme nts SARS-COV2/RT-PCR (test code = 0603304) Negative Not Detected, N egative, See external report for linked test SARS-COV-2 PERFORMING LAB (test code = [facility] [id number]) Negative results do not preclude SARS-CoV-2 infection and should not be used as the sole basis for patient management decisions. Negative results must be combined with clinical observations, patient history, and epidemiological information. A false negative result may occur if a specimen is improperly collected, transported or handled.The limit of detection for this assay is 250 copies/mL.This SARS CoV-2 test is a rapid, real-time RT-PCR test intended for the qualitative detection of nucleic acid from SARS-CoV-2 in a nasopharyngeal swab specimen collected from individuals suspected of COVID-19 by their healthcare provider.This test has not been Food and Drug Administration (FDA) cleared or approved and has been authorized by FDA under an Emergency Use Authorization (EUA). This EUA will be effective until the declaration that circumstances exist justifying the authorization of the emergency use of in vitro diagnostic tests for detection and/or diagnosis of COVID-19 is terminated under Section 564(b)(2) of the Act or the EUA is revoked under Section 564(g) of the Act.Fact Sheet for Healthcare Pro viders:https://www.QuickProNotes/Documents/Xpert%20Xpress%20SARS%20CoV-2/Fact%20Sh eets/302-3802%48RWGQ-NIK-7%20HEALTHCARE%20PROVIDERS%20FACT%20SHEET.pdfFact Sheet for Healthcare Patients:https://www.[facility]/Documents/Xpert%20Xpress%20SARS%20CoV-2/Fact%20Sheets/3023801%20SARS-COV -2%20PATIENT%20FACT%20SHEET.pdfPerforming Laboratory:[facility], [place] [address]HITHBUATO URINE MONOCLONALRO 2018-04-05 12:30:00 Test Item Value Reference Range Interpretation Comments PREG UR (test code = PGU) NEGATIVE NEGATIVE
[2022-03-02] MEDS ORDERED: METHYLERGONOVINE 0.2MG/ML AMP IM PRN (06:21)
[2022-03-02] MEDS ORDERED: Ringers Lactate 1,000 ML IV PRN (06:21)
[2022-03-02] MEDS ORDERED: PROMETHAZINE INJ 25 MG/ML AMP IM PRN (06:21)
[2022-03-02] MEDS ORDERED: BUTORPHANOL 1 MG/ML INJ IV PRN (06:21)
[2022-03-02] MEDS ORDERED: CARBOPROST TROME 250 MCG/ML IM PRN (06:21)
[2022-03-02] MEDS ORDERED: FENTANYL CITR 100 MCG/2 ML IV ONE (06:28)
[2022-03-02] MEDS ORDERED: ROPIVACAINE HCL 0.2% 20ML AMP IV ONE (06:28)
[2022-03-02 06:36] LABS: Absolute Lymphocytes (CBC) 1.8 K/uL (0.7-4.9); Blood Morphology Comment NOT SEEN (NOT SEEN); Hematocrit 26.1 % (36.0-45.0); Lymphocytes % 16.8 % (15.3-44.8); MCV 89.6 fL (80-100); MPV 7.8 fL (7.6-11.3); Platelet Estimate ADEQ; RBC Red Blood Cell Count 2.92 M/uL (3.86-4.86)
[2022-03-02] MEDS ORDERED: 0.2% ROPIVACAINE (200 MG/100 ML) BAG EP ONE (06:37)
[2022-03-02 06:40] LABS: SARS-CoV-2 Antigen Rapid Res Negative (Negative)
[2022-03-02] MEDS ORDERED: Ringers Lactate 1,000 ML IV SCH (07:00)
[2022-03-02] MEDS ORDERED: OXYTOCIN/LR 20 UNIT/1,000 ML BAG IV SCH (07:00)
[2022-03-02] MEDS ORDERED: LIDOCAINE 1% MPF 30 ML VIAL ONE (07:01)
[2022-03-02 07:11] VITALS: BMI 21.6
[2022-03-02] MEDS ORDERED: DIPHENHYDRAMINE 25 MG TAB/CAP PO PRN (07:39)
[2022-03-02] MEDS ORDERED: BISACODYL 10 MG RECTAL SUPP RC PRN (07:39)
[2022-03-02] MEDS ORDERED: Oxycodone HCl/Acetaminophen 1 TAB TAB PO PRN ×2 (07:39)
[2022-03-02] MEDS ORDERED: DOCUSATE NA/SENNA CONC 1 TAB PO PRN (07:39)
[2022-03-02] MEDS ORDERED: ACETAMINOPHEN 500 MG TAB PO PRN (07:39)
[2022-03-02] MEDS ORDERED: miSOPROStoL 100 MCG TAB ONE (07:45)
[2022-03-02] MEDS ORDERED: miSOPROStoL 100 MCG TAB PO ONE (07:45)
[2022-03-02] MEDS ORDERED: INFLUENZA VACCINE (for 6+ mo) 0.5 ML DOSE IMVAC ONE (08:00)
[2022-03-02] MEDS ORDERED: PENICILLIN 2.5 MU in NA CHLORIDE 0.9% 100 ML IV SCH ×2 (09:00→10:30)
--- NOTE | 2022-03-02 09:42 | DN ---
Surgeon: Wilman Gordon MD Procedure In Detail: A 26-year-old, 2, para 1, 36 weeks 1 day. Experienced spontaneous rupt ure of membranes. Came into Labor and Delivery, noted to be in early labor. Was given Stadol 1 mg I V, Phenergan 25 mg IM at approximately 3.5 to 4 cm. Requested and received epidural anesthesia, whic h gave excellent effect during remainder of labor and delivery. The patient went rapidly to complete , second stage of about 15 to 20 minutes, spontaneous vaginal delivery of a 6-pound 12-ounce female, Apgars 9 and 9. Second-degree laceration repaired with 2-0 chromic. Partial manual removal of the p lacenta as bleeding was somewhat brisk at that point and the patient had a low blood count. Estimate d total blood loss at the time of delivery 400 cc. The uterus contracted down well with IV drip Ildefonso zoey and massage. The patient had been given 5 million units of penicillin as she was less than 37 we eks even though her strep test was negative. Final Diagnoses: Intrauterine gestation at 36 weeks 1 day, spontaneous, rupture of membranes, vagina l delivery, epidural anesthesia, penicillin prophylaxis, maternal anemia on admission. IDALIAC/MODL Voice ID: [id number] Report ID: [id number]
--- NOTE | 2022-03-02 09:42 | PREOPHP ---
Date of Admission: 03/02/2022 History Of Present Illness: Sury Jade is a 26-year-old, 2, para 1, 36 weeks 1 day, fo llowed antepartum without complications, to be Rh positive, immune to rubella, negative strep, negati ve COVID, negative hepatitis B. Came in with spontaneous rupture of membranes and in early labor. R eceived Stadol 1 mg IV, Phenergan 25 mg IM, and subsequently then epidural anesthesia. Family History: Noncontributory. Past Medical History: She has had her wisdom teeth removed and spinal injections. Allergies: TRAMADOL AND AMERGE. Medications: vitamins prior to admission. The patient has had trouble with anemia and is h aving difficulty taking iron pills, admission hematocrit 26 reflects this problem. She is completely asymptomatic. Social History: Does not smoke. Physical Examination: HEENT: Clear. Pupils equal, round, reactive to light and accommodation. Conjunctivae well perfused . No oral, lingual, or buccal lesions. Chest and Lungs: Clear. Heart: Without murmurs, thrills, heaves, rubs. Breasts: Without masses on previous visits. Abdomen: Appropriate size. Extremities: Clear. Assessment And Plan: The patient was 2.5 cm on admission with clear fluid, rupture of membranes. Ad mitted for stabilization and delivery. HARRIS/DANG Voice ID: [id number]
[2022-03-02] MEDS: miSOPROStoL 100 MCG TAB PO SCH ×4 (09:49→21:39)
[2022-03-02] MEDS ORDERED: ONDANSETRON 4 MG/2 ML VIAL IV PRN (10:27)
[2022-03-02] MEDS: OXYTOCIN/LR 20 UNIT/1,000 ML BAG IV SCH ×2 (10:49→16:00)
[2022-03-02 21:13] LABS: RPR (Rapid Plasma Reagin) NON-REACT (NON-REACT)
[2022-03-03] MEDS: IBUPROFEN 600 MG TAB PO PRN ×2 (05:05→12:38)
[2022-03-03] MEDS ORDERED: TDAP (DIPHTH,PERTUSS(ACELL),TET VAC) 0.5 ML VIAL IMVAC ONE ×2 (09:28→09:29)
[2022-03-03 11:38] VITALS: TEMP 97.6
[2022-03-03 11:47] LABS: Hematocrit 20.6 % (36.0-45.0)
[2022-03-03] MEDS ORDERED: SOD FERRIC GLUC COMPLX/SUCROSE 125 MG in NA CHLORIDE 0.9% 100 ML IV ONE (12:00)
[2022-03-03 13:48] VITALS: BP 100/59
[2022-03-06 19:27] LABS: HBsAG Nonreactive (Nonreactive)
== END 2022-03-03 14:15 | disposition home or self-care (01) | DRG 807 ==
LOC: 2ND-WC 01:44
PROVIDERS: ADMIT Specialist; ATTEND Specialist
PROC: 10E0XZZ Delivery of Products of Conception, External Approach (ICD-10-PCS; principal; 2022-03-02)
PROC: 0KQM0ZZ Repair Perineum Muscle, Open Approach (ICD-10-PCS; 2022-03-02)
PROC: 3E0234Z Introduction of Serum, Toxoid and Vaccine into Muscle, Percutaneous Approach (ICD-10-PCS; 2022-03-02)
DX: O42.913 Preterm premature rupture of membranes, unspecified as to length of time between rupture and onset of labor, third trimester (principal); Z37.0 Single live birth; Z3A.36 36 weeks gestation of pregnancy; Z23 Encounter for immunization; O70.1 Second degree perineal laceration during delivery; O99.02 Anemia complicating childbirth; Z20.822 Contact with and (suspected) exposure to COVID-19
CPT/HCPCS: 36415; 85014; 85018; 85025; 86592; 86593; 86850; 86900; 86901; 87340; 87811; J0595; J2210; J2405; J2540; J2550; J2590; J2795; J2916; J3010; J7120

== ENCOUNTER 2022-03-06 12:09 | Observation (INO) | payer OTHER ==
--- OUTSIDE RECORDS SUMMARY | 2022-03-06 12:14 | XMS REPORT | Continuity of Care Document ---
:1995 Author Organization [facility] t Address [address] [place] [address] [address]. [address] [place] [address] Care Team Providers Name Role Phone DR [...] Department ID 2018-04-05 2018-04-05 Outpatient LENCHO COLLINS [place] [id number] [facility] 12:23:00 15:16:00 [facility] Results Test Description Test Time Test Comments Results Result Comments Source SARS-COV2/RT-PCR ([facility]) 2019-11-12 11:52:00 Test Item Value Reference Range Interpretation Comme nts SARS-COV2/RT-PCR (test code = 6417034) Negative Not Detected, N egative, See external report for linked test SARS-COV-2 PERFORMING LAB (test code = [facility] [id number]) Negative results do not preclude SARS-CoV-2 infection [...] of the Act.Fact Sheet for Healthcare Pro viders:https://www.[employer]/Documents/Xpert%20Xpress%20SARS%20CoV-2/Fact%20Sh eets/302-3802%31RJGQ-YUU-3%20HEALTHCARE%20PROVIDERS%20FACT%20SHEET.pdfFact Sheet for Healthcare Patients:https://www.[employer]/Documents/Xpert%20Xpress%20SARS%20CoV-2/Fact%20Sheets/3023801%20SARS-COV -2%20PATIENT%20FACT%20SHEET.pdfPerforming Laboratory:[facility], [place] [address]PXPAAPVCF URINE MONOCLONALRO 2018-04-05 12:30:00 Test Item Value Reference Range Interpretation Comments PREG UR (test code = PGU) NEGATIVE NEGATIVE
[2022-03-06] MEDS ORDERED: NA CHLORIDE 0.9% 1,000 ML ONE (12:57)
[2022-03-06 13:14] LABS: Absolute Lymphocytes (CBC) 1.4 K/uL (0.7-4.9); Hematocrit 21.9 % (36.0-45.0); Lymphocytes % 12.5 % (15.3-44.8); MCV 92.6 fL (80-100); MPV 6.7 fL (7.6-11.3); RBC Red Blood Cell Count 2.37 M/uL (3.86-4.86)
[2022-03-06 13:25] LABS: Albumin 2.5 g/dL (3.4-5.0); Bilirubin Total 0.4 mg/dL (0.2-1.0); Potassium 3.5 mmol/L (3.5-5.1); Protein, Total 5.9 g/dL (6.4-8.2)
--- NOTE | 2022-03-06 14:37 | ER ---
Nurse's Notes [facility] Name: Sury Jade Age: 26 yrs Sex: Female : 1995 Arrival Date: 03/06/2022 Time: 12:12 Bed 8 Private MD: Wilman Gordon B Diagnosis: Iron deficiency anemia, unspecified;Iron deficiency anemia secondary to blood loss (chronic);Weakness;Tachycardia, unspecified Presentation: 03/06 12:27 Chief complaint: Patient states: 4 days , states headache and dizziness upon vg1 standing with SOB; stated had vag delivery and a placenta abruption; had an iron transfusion. Denies [place]. Coronavirus screen: Vaccine status: Patient reports being unvaccinated. Client denies travel out of the [place] in the last 14 days. Ebola Screen: Patient negative for fever greater than or equal to 101.5 degrees Fahrenheit, and additional compatible Ebola Virus Disease symptoms. Initial Sepsis Screen: Does the patient meet any 2 criteria? No. Patient's initial sepsis screen is negative. Does the patient have a suspected source of infection? No. Patient's initial sepsis screen is negative. Risk Assessment: Do you want to hurt yourself or someone else? Patient reports no desire to harm self or others. Onset of symptoms was March 02, 2022. 12:27 Method Of Arrival: Ambulatory vg1 12:27 Acuity: MIKAELA 3 vg1 Triage Assessment: 12:31 General: Appears uncomfortable, Behavior is calm, cooperative. Pain: Complains of pain vg1 in head Pain currently is 2 out of 10 on a pain scale. Neuro: Level of Consciousness is awake, alert, obeys commands, Oriented to person, place, time, situation. Neuro: Reports dizziness, headache. Respiratory: Reports shortness of breath on exertion Onset: The symptoms/episode began/occurred x four days, the patient has mild shortness of breath. 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 - Social history:: Smoking status: Patient denies any tobacco usage or history of. Screenin:00 Abuse screen: Denies threats or abuse. Denies injuries from another. Nutritional jl7 screening: No deficits noted. Tuberculosis screening: No symptoms or risk factors identified. Fall Risk IV access (20 points). Total Jhaveri Fall Scale indicates No Risk (0-24 pts). Assessment: 13:15 General: Appears in no apparent distress. uncomfortable, Behavior is calm, cooperative, jl7 appropriate for age. Pain: Complains of pain in right lower quadrant and left lower quadrant Pain currently is 2 out of 10 on a pain scale. Quality of pain is described as crampy. Neuro: Level of Consciousness is awake, alert, obeys commands. Cardiovascular: Patient's skin is warm and dry. Rhythm is regular. Respiratory: Airway is patent Respiratory effort is even, unlabored, Respiratory pattern is regular, symmetrical, Breath sounds are clear. Derm: Skin is dry, Skin is pale, Skin temperature is warm. 14:15 Reassessment: Dr. Rodriguez at bedside discussing results and POC. jl7 15:00 Reassessment: Patient appears in no apparent distress at this time. No changes from jl7 previously documented assessment. Patient and/or family updated on plan of care and expected duration. Pain level reassessed. Patient is alert, oriented x 3, equal unlabored respirations, skin warm/dry/pink. Vital Signs: 12:27 BP 114 / 74; Pulse 93; Resp 17; Temp 98.8(O); Pulse Ox 99% on R/A; Weight 56.7 kg; vg1 Height 5 ft. 5 in. (165.10 cm); Pain 2/10; 13:05 BP 113 / 67 Supine; Pulse 88; jl7 13:06 BP 115 / 75 Sitting; Pulse 93; jl7 13:08 BP 114 / 78 Standing; Pulse 115; jl7 14:00 BP 115 / 97; Pulse 92; Resp 15; Pulse Ox 100% ; jl7 12:27 Body Mass Index 20.80 (56.70 kg, 165.10 cm) vg1 ED Course: 12:12 Patient arrived in ED. as 12:13 Wilman Gordon MD is Private Physician. as 12:31 Triage completed. vg1 12:31 Arm band placed on. vg1 12:34 Thomas Rodriguez MD is Attending Physician. yovanny 12:38 Patient placed in an exam room, on a stretcher. ll1 12:54 Christian Lundberg, RN is Primary Nurse. jl7 13:00 Patient has correct armband on for positive identification. Placed in gown. Bed in low jl7 position. Call light in reach. Side rails up X 1. Client placed on continuous cardiac and pulse oximetry monitoring. NIBP monitoring applied. 13:00 Warm blanket given. jl7 13:06 Inserted saline lock: 20 gauge in left antecubital area, using aseptic technique. Blood jl7 collected. 13:26 Initial lab(s) drawn, by ED staff, sent to lab. EKG done, by ED staff, reviewed by bryan Rodriguez MD. 14:35 Wilman Gordon MD is Hospitalizing Provider. yovanny 14:36 Lino Orr MD is Hospitalizing Provider. yovanny 15:34 No provider procedures requiring assistance completed. Patient admitted, IV remains in jl7 place. intact, No redness/swelling at site. Administered Medications: 13:28 Drug: NS 0.9% 500 ml Route: IV; Rate: bolus; Site: left antecubital; jl7 13:28 Drug: NS 0.9% 1000 ml Route: IV; Rate: 125 ml/hr; Site: left antecubital; jl7 Medication: 14:00 VIS not applicable for this client. jl7 Outcome: 14:36 Decision to Hospitalize by Provider. yovanny 15:34 Admitted to L \T\ D, accompanied by tech, family with patient, via wheelchair, room 270, jl7 with chart, Report called to KAMRAN Peck 15:34 Condition: stable 15:34 Discharge instructions given to patient, family, Instructed on the need for admit, Demonstrated understanding of instructions. 15:43 Patient left the ED. jl7 Signatures: Thomas Rodriguez MD MD cha Martinez, Amelia as Leal, Jahala, RN RN jl7 Araceli Escobedo RN RN vg1 Maame Dumont RN RN ll1
--- NOTE | 2022-03-06 14:37 | EDPHYS ---
Physician Documentation [facility] Name: Sury Jade Age: 26 yrs Sex: Female : 1995 Arrival Date: 03/06/2022 Time: 12:12 Bed 8 Private MD: Wilman Gordon B ED Physician Thomas Rodriguez HPI: 03/06 14:29 This 26 yrs old Female presents to ER via Ambulatory with complaints of Post yovanny Problem, Dizziness, Shortness Of Breath, Irregular Pulse. 14:29 The patient presents with dizziness. Onset: The symptoms/episode began/occurred 3 yovanny day(s) ago. Context: occurred post . Modifying factors: The symptoms are alleviated by nothing, the symptoms are aggravated by nothing. Associated signs and symptoms: The patient has no apparent associated signs or symptoms. Severity of symptoms: At their worst the symptoms were mild in the emergency department the symptoms are unchanged. Patient's baseline: Neuro: alert and fully oriented. The patient has not experienced similar symptoms in the past. 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 - Social history:: Smoking status: Patient denies any tobacco usage or history of. ROS: 14:31 Constitutional: Negative for fever, chills, and weight loss, Eyes: Negative for injury, yovanny pain, redness, and discharge, ENT: Negative for injury, pain, and discharge, Neck: Negative for injury, pain, and swelling, Abdomen/GI: Negative for abdominal pain, nausea, vomiting, diarrhea, and constipation, Back: Negative for injury and pain, MS/Extremity: Negative for injury and deformity, Skin: Negative for injury, rash, and discoloration, Neuro: Negative for headache, weakness, numbness, tingling, and seizure, Psych: Negative for depression, anxiety, suicide ideation, homicidal ideation, and hallucinations, Allergy/Immunology: Negative for hives, rash, and allergies, Endocrine: Negative for neck swelling, polydipsia, polyuria, polyphagia, and marked weight changes, Hematologic/Lymphatic: Negative for swollen nodes, abnormal bleeding, and unusual bruising. 14:31 Cardiovascular: Positive for palpitations. 14:31 Respiratory: Positive for shortness of breath, at rest. Exam: 14:31 Constitutional: This is a well developed, well nourished patient who is awake, alert, yovanny and in no acute distress. Head/Face: Normocephalic, atraumatic. Eyes: Pupils equal round and reactive to light, extra-ocular motions intact. Lids and lashes normal. Conjunctiva and sclera are non-icteric and not injected. Cornea within normal limits. Periorbital areas with no swelling, redness, or edema. ENT: Nares patent. No nasal discharge, no septal abnormalities noted. Tympanic membranes are normal and external auditory canals are clear. Oropharynx with no redness, swelling, or masses, exudates, or evidence of obstruction, uvula midline. Mucous membranes moist. Neck: Trachea midline, no thyromegaly or masses palpated, and no cervical lymphadenopathy. Supple, full range of motion without nuchal rigidity, or vertebral point tenderness. No Meningismus. Chest/axilla: Normal chest wall appearance and motion. Nontender with no deformity. No lesions are appreciated. Respiratory: Lungs have equal breath sounds bilaterally, clear to auscultation and percussion. No rales, rhonchi or wheezes noted. No increased work of breathing, no retractions or nasal flaring. Abdomen/GI: Soft, non-tender, with normal bowel sounds. No distension or tympany. No guarding or rebound. No evidence of tenderness throughout. Back: No spinal tenderness. No costovertebral tenderness. Full range of motion. Skin: Warm, dry with normal turgor. Normal color with no rashes, no lesions, and no evidence of cellulitis. MS/ Extremity: Pulses equal, no cyanosis. Neurovascular intact. Full, normal range of motion. Neuro: Awake and alert, GCS 15, oriented to person, place, time, and situation. Cranial nerves II-XII grossly intact. Motor strength 5/5 in all extremities. Sensory grossly intact. Cerebellar exam normal. Normal gait. Psych: Awake, alert, with orientation to person, place and time. Behavior, mood, and affect are within normal limits. 14:31 Cardiovascular: Rate: tachycardic, actual rate is 110 bpm, Rhythm: regular, Pulses: Pulses are 4+ in bilateral radial, brachial, femoral, popliteal, posterior tibial and and dorsalis pedis arteries.. Heart sounds: normal, normal S1and S2, no S3 or S4, no murmur, no rub, no gallop, Edema: is not appreciated, JVD: is not appreciated. 14:31 ECG was reviewed by the Attending Physician. Vital Signs: 12:27 BP 114 / 74; Pulse 93; Resp 17; Temp 98.8(O); Pulse Ox 99% on R/A; Weight 56.7 kg; vg1 Height 5 ft. 5 in. (165.10 cm); Pain 2/10; 13:05 BP 113 / 67 Supine; Pulse 88; jl7 13:06 BP 115 / 75 Sitting; Pulse 93; jl7 13:08 BP 114 / 78 Standing; Pulse 115; jl7 14:00 BP 115 / 97; Pulse 92; Resp 15; Pulse Ox 100% ; jl7 12:27 Body Mass Index 20.80 (56.70 kg, 165.10 cm) vg1 MDM: 12:34 Patient medically screened. yovanny 14:33 Differential diagnosis: cardiac arrhythmia, generalized weakness, hypovolemia, yovanny idiopathic dizziness, near-syncope. Data reviewed: vital signs, nurses notes, lab test result(s), EKG, radiologic studies, ultrasound. Data interpreted: polygraph examiner: rate is 92 beats/min, rhythm is regular, Pulse oximetry: on room air is 100 %. Test interpretation: by ED physician or midlevel provider: ECG, plain radiologic studies. Counseling: I had a detailed discussion with the patient and/or guardian regarding: the historical points, exam findings, and any diagnostic results supporting the discharge/admit diagnosis, lab results, radiology results, the need for further work-up and treatment in the hospital. Physician consultation:. ED course: dr josé miguel mora , admit, transfuse. 03/06 12:47 Order name: CBC with Diff yovanny 03/06 12:47 Order name: Comprehensive Metabolic Panel; Complete Time: 13:30 yovanny 03/06 12:47 Order name: Type And Screen yovanny 03/06 14:10 Order name: Chest Single View XRAY yovanny 03/06 14:10 Order name: BNP yovanny 03/06 12:47 Order name: EKG; Complete Time: 12:47 yovanny 03/06 12:47 Order name: EKG - Nurse/Tech; Complete Time: 13:28 yovanny 03/06 14:29 Order name: US Transvaginal Study (Probe) [facility] 03/06 15:38 Order name: US EDMS 03/06 15:43 Order name: RAD EDMS 03/06 12:47 Order name: Orthostatics; Complete Time: 13:28 yovanny EC:31 Rate is 84 beats/min. Rhythm is regular. QRS [place] is Normal. AK interval is normal. QRS yovanny interval is normal. QT interval is normal. No Q waves. T waves are Normal. No ST changes noted. Clinical impression: NSR w/ Non-specific ST/T Changes and No evidence of ischemia. Interpreted by me. Reviewed by me. Administered Medications: 13:28 Drug: NS 0.9% 500 ml Route: IV; Rate: bolus; Site: left antecubital; jl7 13:28 Drug: NS 0.9% 1000 ml Route: IV; Rate: 125 ml/hr; Site: left antecubital; jl7 Disposition Summary: 03/06/22 14:36 Hospitalization Ordered Hospitalization Status: Inpatient Admission yovanny Provider: Lino Mora cha Location: [facility] yovanny Condition: Fair yovanny Problem: new yovanny Symptoms: have improved yovanny Bed/Room Type: Standard [facility] Room Assignment: 270-(03/06/22 15:08) eb Diagnosis - Iron deficiency anemia, unspecified yovanny - Iron deficiency anemia secondary to blood loss (chronic) yovanny - Weakness yovanny - Tachycardia, unspecified yovanny Forms: - Medication Reconciliation Form yovanny - SBAR form yovanny Signatures: Dispatcher [employer] Thomas Lewis MD MD cha Leal, Jahala RN RN jl7 Tess Benitez Victoria, RN RN vg1 Corrections: (The following items were deleted from the chart) 15:08 14:36 yovanny eb
--- NOTE | 2022-03-06 15:37 | RAD REPORT ---
EXAM DESCRIPTION: US - Pelvis Complete - 03/06/2022 3:13 pm CLINICAL HISTORY: ABD PAIN Pelvic pain. COMPARISON: <Comparisons> FINDINGS: Transabdominal ultrasound performed. The patient refused transvaginal study. Enlarged heterogeneous uterus consistent the recent state. The uterus measures 12.9 cm. Neither ovary was visualized. No free fluid identified. IMPRESSION: Enlarged uterus. No evidence of retained products. Neither ovary visualized. The patient refused a transvaginal ultrasound.
--- NOTE | 2022-03-06 15:43 | RAD REPORT ---
EXAM DESCRIPTION: RAD - Chest Single View - 03/06/2022 3:35 pm CLINICAL HISTORY: DYSPNEA COMPARISON: No comparisonsNo comparisonsChest Pa And Lat (2 Views) dated 09/30/2020 FINDINGS: Lines: None. Lungs: No evidence of edema or pneumonia. Pleural: No significant pleural effusions or pneumothorax. Cardiac: The heart size is within normal limits. Mediastinum: Within normal limits. Bones: No acute fractures. Other: None IMPRESSION: No acute cardiopulmonary disease.
[2022-03-06] MEDS ORDERED: NA CHLORIDE 0.9% 1,000 ML IV SCH (15:50)
[2022-03-06] MEDS ORDERED: ONDANSETRON 4 MG/2 ML VIAL IV PRN (15:50)
[2022-03-06] MEDS ORDERED: ACETAMINOPHEN 500 MG TAB PO PRN (15:50)
[2022-03-06] MEDS ORDERED: NA CHLORIDE 0.9% 100 ML IV ONE (16:01)
[2022-03-06] MEDS ORDERED: NA CHLORIDE 0.9% 0 ML ONE (16:01)
[2022-03-06] MEDS ORDERED: ACETAMINOPHEN 325 MG TABLET ONE (16:07)
[2022-03-06 16:58] LABS: Blood Morphology Comment NOT SEEN (NOT SEEN); Platelet Estimate ADEQ; White Blood Cell Scan OK (OK)
[2022-03-06 17:03] VITALS: O2SAT 100
[2022-03-06] MEDS: METHYLERGONOVINE 0.2 MG TAB PO SCH ×2 (17:12→22:44)
[2022-03-06] MEDS ORDERED: NA CHLORIDE 0.9% 500 ML ONE (17:47)
[2022-03-06 23:02] LABS: Hematocrit 29.4 % (36.0-45.0)
[2022-03-07] MEDS ORDERED: SOD FERRIC GLUC COMPLX/SUCROSE 125 MG in NA CHLORIDE 0.9% 100 ML IV ONE (03:00)
[2022-03-07] MEDS: METHYLERGONOVINE 0.2 MG TAB PO SCH (04:40)
[2022-03-07 07:10] VITALS: BP 119/73; TEMP 97.3
--- NOTE | 2022-03-07 08:29 | HP ---
Date of Admission: 03/06/2022 History Of Present Illness: Sury Jade is a 26-year-old white female G2, now P2, who had a vag inal delivery, uncomplicated on 03/02/2022. At that time, she was at 36 weeks of station. She went into labor and had a normal delivery. She has a history of chronic anemia with admission hemoglobin around 9.5 and hematocrit of 26.1. the next day on 03/03/2022, her H and H value were 7.1 and 20.6. I saw her, and my examination, she has a very firm uterus with a minimum amount of lochia . Because she is anemic, I have educated her and inform her the risk of anemia and offer blood trans fusion. She was reluctant to have blood transfusion and thereafter refused. I went ahead and spoke to her about IV iron. She accepted that. I gave her a dose of IV iron. She was sent home in good a nd stable condition with ibuprofen and also oral iron in anemia precaution. Three days later on 02/22, she has called the hospital and I spoke to her, she has told me that she has experiencing wea kness, shortness of breath, and unable to stay awake. She also told me there was the day that she pa ssing more lochia with some blood clots. Therefore, I asked her to come to the emergency room depart ment for evaluation. She came into the ER showing an H and H of 7.5 and 21.9, which is slightly high er than discharge. She is in no acute bleeding and she was tachycardic and the blood pressure was st able. Great deal of education on blood transfusion was done initially, she refused, but later, she h as complied, she accepted 2 units of blood transfusion. I evaluated this patient in person again. H er uterus was firm. At this time, she has minimum amount of vaginal lochia or bleeding. Pelvic ultr asound transvaginally showing no retained products of conception. Otherwise, a normal [place] ira sandor. Overall condition stable with the exception of symptomatic anemia. She was admitted for observ ation and blood transfusion. Since is so late into the evening, the patient has agreed to be revalua timmy early in the morning and to be discharged. Allergies: SHE HAS ALLERGY TO TRAMADOL AND AMERGE. Medications: She was sent home with ibuprofen and iron replacement. Past Medical History: She has a history of HPV in 2019 and she has a history of spinal injury. The nature of the injuries was unclear, but the patient apparently suffered no neurological consequences. Past Surgical History: Benign and negative, only remarkable for dental surgery. Social History: The patient denies cigarette smoking or alcohol consumption. Family History: Unremarkable and noncontributory. Review Of The Systems: Remarkable for symptoms. She does have weakness, syncopal episode s, signs of symptomatic anemia. Physical Examination: General: She is alert and oriented x3. The pulse is was about 120s. Vital Signs: Blood pressure is normal 130/85. She was alert and pale in appearance. HEENT: Normal. Heart: Tachycardia, however, regular rhythm. Lungs: Clear and also a chest x-ray done by the emergency room physician that showing no acute proce ss. Abdomen: Normal exam, nonacute. Uterus palpable by the umbilicus level and very firm. Extremities: No clubbing, cyanosis, or edema. Neurological: Intact. Vulva: Showing minimal amount of pink discharge. There is no evidence of blood clots. Impression: 1.Symptomatic anemia. 2.Both blood loss and chronic anemia. 3. status, normal post vaginal delivery. Plan: Admit the patient for observation. 2 units packed blood cell transfusion. Education, observa tion, and this patient will be discharged after completion of the blood transfusion. HARSHA/DANG Voice ID: [id number]
[2022-03-07] MEDS ORDERED: SOD FERRIC GLUC COMPLX/SUCROSE 125 MG in NA CHLORIDE 0.9% 100 ML IV SCH (09:00)
--- NOTE | 2022-03-07 15:09 | EKG ---
Test Date: 2022-03-06 Test Time: 13:07:51 Dietetics Teacher: ANNMARIE MEASUREMENT RESULTS: Intervals: Rate: 84 MN: 144 QRSD: 72 QT: 322 QTc: 380 [place]: P: 66 MN: 144 QRS: 77 T: 51 INTERPRETIVE STATEMENTS: Normal sinus rhythm Normal ECG No previous ECG available for comparison Electronically Signed On 03-07-22 15:07:40 HOSE FINISHER by Hermilo Richey
--- NOTE | 2022-03-08 07:15 | DS ---
Date of Discharge: 03/07/2022 Final Discharge Diagnoses: 1.Symptomatic severe blood loss anemia. 2.History of chronic anemia. 3. status. Hospital Course: Sury is a G2, now P2 white female, had a vaginal delivery approximately 5 days ago; and during the next day, she was discharged. She has a history of chronic anemia and she lost 2 points of hemoglobin from 9.5, 26.1 to 7.1 and 20.6. At that time, she was reluctant to get a blood product transfusion and decided to follow my instructions. About 3 days later, she became more symp tomatic and returned to the hospital for blood product transfusion. She received 2 units, and her H and H have increased from 7.5, 21.9 to 10.0, 29.4. Vital signs were stable. The patient's condition has improved, therefore, discharged home on 03/07/2022. Condition was stable and she was asked to r esume all her previously prescribed medications including ibuprofen and iron replacement, and follow up with Dr. Gordon in the next 1 to 2 weeks. HARSHA/DANG Voice ID: [id number] Report ID: [id number]
--- NOTE | 2022-03-08 07:18 | DS ---
Date of Discharge: 03/07/2022 Hospital Course: A 26-year-old female who had delivered uncomplicated delivery [id number] uter ine hypotonus, was anemic on admission. Dr. Orr saw patient morning. She was reporting di zziness. Blood count revealed hematocrit of about 22 to 22-1/2. She refused blood, but was given ir on transfusion dismissed. Came back Monday to the emergency room with dizziness, was re-admitted and given 2 units of packed cells and another iron infusion. Her hematocrit is now in the 30 range, whi ch was when she was admitted. She is feeling good. There is minimal bleeding. She will be dismisse d to report back in 3 to 6 weeks to the office to continue her iron therapy, which was encouraged thr oughout the . No complaints or problems this morning. Final Diagnosis: Re-admission for maternal anemia, iron infusion, and 2 units of packed cells given for maternal anemia. HARRIS/DANG Voice ID: [id number] Report ID: [id number]
== END 2022-03-07 10:30 | disposition home or self-care (01) ==
LOC: ER 12:09 → ERHOLD 14:41 → 2ND-WC 15:18
PROVIDERS: ADMIT Obstetrics & Gynecology; ATTEND Obstetrics & Gynecology
DX: O90.81 Anemia of the puerperium (principal); D50.0 Iron deficiency anemia secondary to blood loss (chronic); Z88.6 Allergy status to analgesic agent
CPT/HCPCS: 36430; 93005; 85025; 36415; 86900; 86850; 86901; 85018; 85014; 80053; 71045; 76856; 99285; J2916; G0378 ×2; P9016 ×2; J7040; J7030